=== PATIENT | female | born 1985 | race Caucasian/White ===

== ENCOUNTER 2020-07-14 14:08 | Inpatient (IN) | payer OTHER ==
[~2020-07-14 14:08] MED LIST: ONDANSETRON 4 MG/2 ML VIAL IVPUSH ONE
[2020-07-14] MEDS ORDERED: EPINEPHrine/PF 1 MG/1 ML (1:1,000) AMPULE ONE (14:17)
[2020-07-14 14:50] LABS: BASO % 0.5 % (0-2.0); EOS % 0.1 % (0-4.5); HEMATOCRIT 42.9 % (32.4-45.2); HEMOGLOBIN 14.3 GM/dL (10.7-15.3); LYMPH % 14.9 % (8-40); MCH 29.6 pg (25.7-33.7); MCHC 33.3 g/dl (32.0-36.0); MEAN CELL VOLUME 88.8 fl (80-96); MEAN PLT VOLUME 8.1 fl (7.5-11.1); MONO % 1.3 % (3.8-10.2); NEUT % 83.2 % (42.8-82.8); PLATELET COUNT 519 K/MM3 (134-434); RBC 4.83 M/mm3 (3.60-5.2); RDW 13.1 % (11.6-15.6); WHITE BLOOD COUNT 18.6 K/mm3 (4.0-10.0)
[2020-07-14 14:55] LABS: INR 1.02 (0.83-1.09); PROTHROMBIN TIME (PATIENT) 12.3 SEC (9.7-13.0)
[2020-07-14] MEDS ORDERED: SODIUM CHLORIDE 0.9% 500 ML INFUS.BAG IV ONE (15:05)
[2020-07-14 15:13] LABS: POTASSIUM 3.2 mmol/L (3.5-5.1)
[2020-07-14 15:16] LABS: ALBUMIN 4.8 g/dl (3.4-5.0); BLOOD UREA NITROGEN 18.1 mg/dL (7-18)
[2020-07-14 15:19] LABS: CREATININE 0.9 mg/dL (0.55-1.3)
[2020-07-14 15:20] LABS: BILIRUBIN,TOTAL 0.6 mg/dL (0.2-1); TOT PROT 8.5 g/dl (6.4-8.2)
[2020-07-14] MEDS ORDERED: POTASSIUM CHLORIDE ORAL LIQUID 20 MEQ/15 ML PO ONE (18:15)
[2020-07-14] MEDS ORDERED: POTASSIUM CHLORIDE ORAL LIQUID 20 MEQ/15 ML ONE (18:19)
[2020-07-14 18:26] LABS: EPI CELLS 4 /uL (0-25.1); HYALINE CASTS 5 /uL (0-3.1); URINE APPEARANCE CLEAR; URINE BILIRUBIN 1+ (NEGATIVE); URINE COLOR ORANGE; URINE GLUCOSE (UA) NEGATIVE (NEGATIVE); URINE KETONE NEGATIVE (NEGATIVE); URINE LEUK ESTERASE 1+ (NEGATIVE); URINE NITRITE POSITIVE (NEGATIVE); URINE PROTEIN 1+ (NEGATIVE); URINE RBC 33 /uL (0-23.9); URINE WBC 18 /uL (0-25.8)
[2020-07-14 18:27] LABS: URINE BACTERIA 12.4 /uL (0-1359)
[2020-07-14] MEDS ORDERED: CEFTRIAXONE 1,000 MG in DEXTROSE 5%-WATER - 50 ML IVPB ONE (19:01)
[2020-07-14] MEDS ORDERED: CEFTRIAXONE 1 GM/50 ML BAG ONE (19:38)
[2020-07-14] MEDS ORDERED: ACETAMINOPHEN 325 MG TABLET (FP) PO PRN (22:51)
[2020-07-14] MEDS ORDERED: TRIMETHOBENZAMIDE HCL 300 MG CAPSULE PO PRN (23:01)
[2020-07-14] MEDS: SODIUM CHLORIDE 1,000 ML IV SCH (23:24)
[2020-07-15 02:26] VITALS: BMI 30.4
[2020-07-15] MEDS: SODIUM CHLORIDE 1,000 ML IV SCH (04:17)
[2020-07-15 08:08] LABS: POTASSIUM 3.9 mmol/L (3.5-5.1)
[2020-07-15 08:09] LABS: HEMATOCRIT 29.6 % (32.4-45.2); HEMOGLOBIN 10.1 GM/dL (10.7-15.3); MCH 30.3 pg (25.7-33.7); MCHC 34.2 g/dl (32.0-36.0); MEAN CELL VOLUME 88.6 fl (80-96); MEAN PLT VOLUME 7.8 fl (7.5-11.1); PLATELET COUNT 253 K/MM3 (134-434); RBC 3.35 M/mm3 (3.60-5.2); RDW 12.8 % (11.6-15.6); WHITE BLOOD COUNT 7.8 K/mm3 (4.0-10.0)
[2020-07-15 08:18] LABS: BLOOD UREA NITROGEN 16.8 mg/dL (7-18); MAGNESIUM 1.7 mg/dL (1.8-2.4)
[2020-07-15 08:21] LABS: CREATININE 0.7 mg/dL (0.55-1.3)
[2020-07-15 08:22] LABS: PHOSPHOROUS 3.2 mg/dL (2.5-4.9)
[2020-07-15 08:23] LABS: BILIRUBIN,TOTAL 0.7 mg/dL (0.2-1)
[2020-07-15 08:32] LABS: CALCIUM 7.3 mg/dL (8.5-10.1); TOT PROT 5.5 g/dl (6.4-8.2)
[2020-07-15] MEDS ORDERED: cefTRIAXone SODIUM 1 GM VIAL ONE (09:13)
[2020-07-15] MEDS ORDERED: PT OWN MED DRAWER 7, Y5N ONE (09:13)
[2020-07-15] MEDS ORDERED: DEXTROSE 5%-WATER - 50 ML IVPB ONE (09:13)
[2020-07-15] MEDS: ENOXAPARIN NA (PORCINE) 40 MG/0.4 ML DISP.SYRIN SQ SCH (09:37)
[2020-07-15] MEDS ORDERED: CEFTRIAXONE 1 GM in DEXTROSE 5%-WATER - 50 ML IVPB ONE (10:00)
[2020-07-15] MEDS ORDERED: SODIUM CHLORIDE 1,000 ML IV SCH (16:09)
[2020-07-16 06:10] VITALS: PULSE 54
[2020-07-16 07:29] LABS: BASO % 0.5 % (0-2.0); EOS % 4.8 % (0-4.5); HEMATOCRIT 28.9 % (32.4-45.2); HEMOGLOBIN 10.1 GM/dL (10.7-15.3); LYMPH % 22.1 % (8-40); MCH 30.8 pg (25.7-33.7); MEAN PLT VOLUME 7.8 fl (7.5-11.1); NEUT % 64.6 % (42.8-82.8); PLATELET COUNT 248 K/MM3 (134-434); RBC 3.28 M/mm3 (3.60-5.2); RDW 12.6 % (11.6-15.6); WHITE BLOOD COUNT 3.7 K/mm3 (4.0-10.0)
[2020-07-16 08:04] LABS: POTASSIUM 3.7 mmol/L (3.5-5.1)
[2020-07-16 08:07] LABS: ALBUMIN 3.2 g/dl (3.4-5.0); BLOOD UREA NITROGEN 7.7 mg/dL (7-18); CALCIUM 8.1 mg/dL (8.5-10.1)
[2020-07-16 08:10] LABS: CREATININE 0.6 mg/dL (0.55-1.3)
[2020-07-16 08:12] LABS: BILIRUBIN,TOTAL 0.4 mg/dL (0.2-1); TOT PROT 5.9 g/dl (6.4-8.2)
[2020-07-16] MEDS: ENOXAPARIN NA (PORCINE) 40 MG/0.4 ML DISP.SYRIN SQ SCH (09:39)
[2020-07-16 14:09] VITALS: BP 133/80; TEMP 98.4
[2020-07-16] MEDS ORDERED: TAMSULOSIN HCL 0.4 MG CAP PO SCH (14:30)
== END 2020-07-16 18:26 | disposition home or self-care (01) | DRG 463 ==
LOC: JER 14:08 → JERBED 19:53 → J7W 07-15 01:42
PROVIDERS: ADMIT Internal Medicine; ATTEND Internal Medicine
DX: N39.0 Urinary tract infection, site not specified (principal); R11.2 Nausea with vomiting, unspecified; N20.0 Calculus of kidney; F41.9 Anxiety disorder, unspecified; I10 Essential (primary) hypertension; R94.31 Abnormal electrocardiogram [ECG] [EKG]; Z85.850 Personal history of malignant neoplasm of thyroid; Z98.84 Bariatric surgery status
CPT/HCPCS: 36415; 70450-TC; 71045-TC-FY; 74176-TC; 80053; 81003; 83735; 84100; 84443; 84703; 85025; 85027; 85610; 87086; 93005; 93010; 99285-25; C9803; U0003